=== PATIENT | female | born 1960 | race Caucasian/White ===

== ENCOUNTER 2024-09-26 08:37 | Day surgery (SDC) | payer OTHER, SELFPAY ==
--- NOTE | 2024-09-26 | PATH_ITS ---
[facility] Accession Number: [id number] No. of containers..01 Tissue . 01 Material submitted: . cecum - CECAL POLYPS . 01 Diagnosis: CECAL POLYPS: Tubular adenomas. STO 09/27/2024 1635 Local . 01 Electronically signed: . Javier Lugo MD, Pathologist NPI- [id number] . 01 Gross description: . CECAL POLYPS: Received in formalin are 2 fragment(s) of lutz, soft tissue measuring 0.3 x 0.3 x 0.3 cm to 0.7 x 0.5 x 0.5 cm submitted entirely in 1 cassette(s) /MARY 09/27/2024 1635 Local . 01 Pathologist provided ICD-10: D12.0 . 01 CPT . 651502 Specimen Comment: A courtesy copy of this report has been sent to [phone] Performed at: [address] [facility] [address], [place], [place] [id number] MD Javier Lugo MD Phone: [phone]
[2024-09-26 09:18] VITALS: BP 169/84; PULSE 80; RESP 16; TEMP 36.5; O2SAT 94
--- NOTE | 2024-09-26 09:53 | P.HP_ITS ---
History of Present Illness History of Present Illness Date Patient Seen: 09/26/24 Time Patient Seen: 09:53 Chief complaint: SDC Narrative: Janelle is a 63-year-old woman who presents for colonoscopy. Her last one was about 12 years ago and she believes it was normal. Her mother had colon cancer in her 70s. [facility] Social History Smoking Status: Never smoker alcohol intake: never Meds Home Medications and Allergies Home Medications Medication Instructions Recorded Confirmed Type venlafaxine 75 mg capsule,extended 75 mg PO QDAY ##0 05/31/13 09/26/24 History release 24 hr (Effexor XR) sodium,potassium,mag sulfates 17.5 See Rx Instructions PO .COMPLEX 08/13/24 Rx gram-3.13 gram-1.6 gram oral soln #354 mL (Suprep Bowel Prep Kit) Allergies Allergy/AdvReac Type Severity Reaction Status Date / Time 1999 Allergy Unknown WELTS Uncoded 09/26/24 08:58 Exam Vital Signs (past 8 hours): - 09/26/24 09:18 Temperature 97.7 F Pulse Rate 80 Respiratory Rate 16 Blood Pressure 169/84 H Pulse Oximetry 94 Oxygen Delivery Method Room Air Oxygen Delivery Method Room Air Const General: No acute distress Resp Effort & Inspection: normal respiratory effort Assessment & Plan Assessment and plan (1) Colon cancer screening: Status: Acute Plan Colonoscopy Time-Based Coding :: [TOTAL MINUTES] spent with patient and on the chart (including review of chart, obtaining history, exam, reviewing outside data, placing orders, documenting exam and treatment plan, and counseling patient) on [DATE].
[2024-09-26 10:25] VITALS: BP 103/67; PULSE 82; RESP 16; TEMP 37.1; O2SAT 92
--- NOTE | 2024-09-26 10:28 | PM.OP.COLON ---
Operative Date/Time/Diagnoses Date of procedure: 09/26/24 Time of procedure: 10:29 Pre-op diagnosis: Colon cancer screening Post-op diagnosis: same Procedure & Clinicians Study performed: Colonoscopy Same procedure as scheduled: Yes Surgeon: Candido Polk Procedure Notes Procedure in detail: Surgeon: Candido Polk MD Anesthesia: Francie Lugo CRNA Procedure: The patient was brought to the endoscopy suite, placed in left lateral decubitus position. The patient was connected to monitoring devices. A time-out was performed. Sedation was administered. Once the patient was adequately sedated, a digital rectal exam was performed and was normal. The scope was then inserted and advanced to the cecum where the appendiceal orifice was identified and photographed. The scope was then slowly withdrawn over greater than 6 minutes. The mucosa was thoroughly inspected. There were 2 polyps in the cecum 3 and 6 mm. They were both removed with a cold snare and sent together. The scope was retroflexed in the rectum. No other abnormalities were seen. The scope was straightened and removed. The patient was awakened and brought to recovery. Scope withdrawal time: 10 minutes Sedation time: 16 minutes EBL: 3 mL Findings: 3 mm cecal polyp, 6 mm cecal polyp Post-procedure Disposition: PACU
[2024-09-26 10:30] VITALS: BP 117/73; PULSE 93; RESP 16; O2SAT 95
[2024-09-26 10:36] VITALS: BP 125/83; PULSE 95; RESP 16; O2SAT 100
[2024-09-26 10:40] VITALS: BP 122/83; PULSE 84; RESP 16; O2SAT 99
[2024-09-26 10:44] VITALS: BP 148/84; PULSE 75; RESP 16; TEMP 36.2; O2SAT 99
== END 2024-09-26 11:01 | disposition home or self-care (01) ==
PROVIDERS: Family Provider Physician Assistant Medical; PCP Nurse Practitioner Family; Referring Provider Surgery; Visit Provider Surgery
PROC: 0DJD8ZZ Inspection of Lower Intestinal Tract, Via Natural or Artificial Opening Endoscopic (ICD-10-PCS; CPT 45378; principal; 2024-09-26 10:00)
DX: Z12.11 Encounter for screening for malignant neoplasm of colon (principal); D12.0 Benign neoplasm of cecum
CPT/HCPCS: 45385; J2704